=== PATIENT | male | born 2000 | race Caucasian/White ===

== ENCOUNTER 2020-04-30 16:43 | Emergency (ER) | payer OTHER, SELFPAY ==
[2020-04-30 16:50] VITALS: BP 142/71; PULSE 88; RESP 19; TEMP 36.6; O2SAT 100; BMI 25.0
[2020-04-30 17:11] LABS: UTC Strep Screen (Rapid) Positive (Negative)
--- NOTE | 2020-04-30 17:23 | HMH.EDUTC ---
[facility] [place] Disposition Clinical Impression: Strep throat Disposition: Home, Self-Care Condition on Discharge: Good Instructions: DI for Strep Throat, Strep Throat (Alternative Therapy), Penicillin V Potassium Additional Instructions: *Monitor Temp, Over the counter Motrin or Tylenol as directed/as needed Tylenol every 4 hours and Motrin every 6 hours (as long as your family doctor has told you that you can take it) for fever or pain. and straight to ER if unable to lower temp less than 101.0 after medication given *Warm salt water gargles may help to soothe the throat *Throat Lozenges *Warm fluids like tea with honey may help to soothe the throat *Sleep elevated *Humidifier/Vaporizer Strep throat *If you did not take Penicillin shot or was unable to, start taking antibiotic immediately and make sure that you take it for the FULL length of time although you should start to feel better in 24-48 hours *change toothbrush and toothpaste 24-48 hours after starting to take antibiotics so you do not reinfect yourself Monitor Temp. Tylenol and/or Ibuprofen as needed. ER if fever is no less than 101 despite alternating Tylenol and Ibuprofen * Encourage fluids, water, Gatorade, powerade, pedialyte if infant/toddler/or child *Cold fluids, popsicles and ice cream may feel good on his throat Follow up IMMEDIATELY for new or worsening symptoms or no Noticeable improvement over the next 48-72 hours. 911 for difficulty breathing or swallowing Prescriptions: Penicillin V Potassium 500 mg PO BID 10 Days #20 tab Transmission Status: Pending to [id number] Referrals: PCP,No [Primary Care Provider] - As needed Time of Disposition: 17:27 Medical Decision Making - Tee Inquiry Pt receiving controlled substance: No Tee was queried for this patient: No Vital Signs: 04/30/20 16:50 Temperature 97.9 F Temperature Source Oral Pulse Rate [Right Brachial] 88 Respiratory Rate 19 Blood Pressure [Right Arm] 142/71 H Blood Pressure Mean [Right Arm] 94 Blood Pressure Source [Right Arm] Automatic Cuff Blood Pressure Position [Right Arm] Sitting 02 Sat by Pulse Oximetry 100 Oxygen Delivery Method Room Air - Lab Data Lab results reviewed: Yes: I reviewed the patient's lab results. Lab Results 04/30/20 17:03: Strep Scn Rapid Clinic Positive A [facility] [place] HPI - General Stated complaint: sore throat, Time Seen by Provider: 04/30/20 17:23 Mode of Arrival: Ambulatory Source of Information: Patient Limitations: No Limitations Description of Symptoms (Recalled from Triage Doc. by RN): PATIENT C/O SORE THROAT SINCE THIS MORNING HEENT Symptoms (Recalled from RN notes): Yes Resp Symptoms (Recalled from RN notes): No Skin Symptoms (Recalled from RN notes): No MS Symptoms (Recalled from RN notes): No Functional Status (Recalled from RN notes): WNL - History of Present Illness Provider Complaint: Patient states that this morning he started having sore throat and hurts when he swallows and has continued throughout the day so he came in to get checked - Related Data Previous Rx's Medication Instructions Recorded Penicillin V Potassium 500 mg PO BID 10 Days #20 tab 04/30/20 Allergies Allergy/AdvReac Type Severity Reaction Status Date / Time No Known Allergies Allergy Verified 04/30/20 17:10 - Worker's Comp Is this a Worker's Comp case?: No [facility] History - Hepatitis A Screen Drug use history?: No High risk sexual behaviors?: No History of sexually transmitted infection?: No Currently employed?: No Childcare worker?: No Do you have indoor plumbing?: Yes Do you have electricity?: Yes Attestation statement:: This patient has been screened for Hepatitis A risk factors. - Social History Alcohol Intake: never Occupational Status: other ROS Obtained: Yes All systems reviewed & no additional complaints, Yes Systems reviewed as appropriate & no additional complaints - Constitutional Constitutional: Reports syst
[2020-04-30 17:26] VITALS: BP 142/71; PULSE 88; RESP 19; TEMP 36.6; O2SAT 100
== END 2020-04-30 17:28 | disposition home or self-care (01) ==
PROVIDERS: Emergency Provider Nurse Practitioner
DX: J02.0 Streptococcal pharyngitis (principal)
CPT/HCPCS: 87880; 99202; G0463

== ENCOUNTER 2021-03-06 21:01 | Emergency (ER) | payer OTHER, SELFPAY ==
[2021-03-06 21:02] VITALS: BP 141/99; PULSE 126; RESP 20; TEMP 37; O2SAT 99; BMI 21.9
--- NOTE | 2021-03-06 21:22 | CT_ITS ---
PROCEDURE INFORMATION: Exam: CT Maxillofacial With Contrast Exam date and time: 03/06/2021 9:22 PM Age: 20 years old Clinical indication: Jaw pain; Patient HX: Jaw & dental pain/swelling TECHNIQUE: Imaging protocol: Computed tomography images of the face with intravenous contrast. Total images: 845 Radiation optimization: All CT scans at this facility use at least one of these dose optimization techniques: automated exposure control; mA and/or kV adjustment per patient size (includes targeted exams where dose is matched to clinical indication); or iterative reconstruction. Contrast material: ISOVUE; Contrast volume: 75 ml; Contrast route: IV; COMPARISON: No relevant prior studies available. FINDINGS: Orbital cavity: Orbital contents are normal. Bones/joints: No fractures. TMJs are well aligned. Paranasal sinuses: Mucosal thickening in the right maxillary sinus suggesting mild chronic sinus inflammatory disease. No fluid levels. The other paranasal sinuses are clear. Mastoid air cells: The mastoid air cells are clear. Soft tissues: Right-sided facial soft tissue swelling over the rightward maxilla and mandibular body suggesting cellulitis. There is moderate dental caries involving the right 2nd maxillary premolar tooth with periodontal bone resorption around the lateral root penetrating the superficial maxillary cortical margin. Questionable 9 x 5 mm peripherally enhancing subperiosteal fluid collection in this region suspicious for a small subperiosteal abscess. Bilateral impacted maxillary molars and impacted left mandibular molar. No foreign body. Submandibular/Parotid glands: The parotid and submandibular glands are unremarkable. Lymph nodes: No adenopathy. Brain: Visualized intracranial contents are unremarkable. The infratemporal fossae and bridge worker spaces are unremarkable. Nasopharynx: The nasopharynx is unremarkable. Oropharynx: The parapharyngeal spaces are unremarkable. The oropharynx is unremarkable. Larynx: Normal epiglottis. Thyroid: The visualized thyroid gland is unremarkable. Other findings: No hematoma. The hypopharynx is unremarkable. Visualized larynx is unremarkable. The visualized proximal tracheal airway is unremarkable. IMPRESSION: 1. Cellulitis in the right mid to lower face with a suspected small subperiosteal abscess along the right lateral maxilla associated with the right 2nd maxillary premolar tooth, which demonstrates evidence of dental caries and periodontal disease. 2. Bilateral impacted wisdom teeth.
[2021-03-06 21:45] LABS: Chloride 102 mmol/L (98-107)
[2021-03-06 21:46] LABS: Potassium 3.5 mmoL/L (3.5-5.1); Sodium 141 mmol/L (136-145)
[2021-03-06 21:48] LABS: Alanine Aminotransferase 25 U/L (12-78); Alkaline Phosphatase 152 U/L (38-126); Aspartate Amino Transferase 26 U/L (17-59); Bilirubin,Total 0.5 mg/dl (0.2-1.3); Blood Urea Nitrogen 11 mg/dl (9-20); Creatinine Clearance Estimated 142 mL/min (50-200); Estimated Glomerular Filt Rate 107 ml/min (>60); GFR (African American) 129 ML/MIN (>60)
[2021-03-06 21:49] LABS: Albumin Level 5.4 g/dl (3.5-5.0); Albumin/Globulin Ratio 1.8 (1.1-1.8); Anion Gap 15.5 mEq/L (5-15); Calcium 10.1 mg/dl (8.4-10.2); Carbon Dioxide 27 mmol/L (22.0-30.0); Glucose 101 mg/dl (74-100); Lactic Acid 1.4 mmol/L (0.7-2.1); Total Protein,Serum 8.4 g/dl (6.3-8.2)
[2021-03-06 21:50] LABS: Basophils # 0.1 K/mm3 (0-0.2); Basophils % 1.4 % (0.1-2.0); Eosinophils # 0.1 K/mm3 (0.0-0.4); Hematocrit 54.4 % (42.0-52.0); Hemoglobin 17.1 g/dL (14.1-18.0); Lymphocytes # 3.1 K/mm3 (0.7-4.5); Lymphocytes % 29.4 % (10-50); Mean Corpuscular HGB Conc 31.4 g/dL (31.8-35.4); Mean Corpuscular Hemoglobin 26.9 pg (27.0-31.2); Mean Corpuscular Volume 85.8 fl (80-94); Mean Platelet Volume 9.3 fl (7.4-10.4); Monocytes # 0.7 K/mm3 (0.1-1.0); Monocytes % 6.4 % (1.7-9.3); Neutrophils # 6.5 K/mm3 (1.8-7.8); Neutrophils % 61.7 % (37.0-80.0); Platelet Count 308 K/mm3 (142-424); Red Blood Count 6.34 M/mm3 (4.60-6.20); Red Cell Distribution Width 13.6 % (11.5-17.5); White Blood Count 10.5 K/mm3 (4.8-10.8)
[2021-03-06 21:58] LABS: Amylase 64 U/L (30-110)
[2021-03-06 22:03] LABS: C-Reactive Protein 10.7 mg/L (0-4)
[2021-03-06 22:26] LABS: Erythrocyte Sedimentation Rate 1 mm/hr (0-15)
--- NOTE | 2021-03-06 23:00 | HMH.EDDENT ---
ED Disposition Clinical Impression: Dental abscess, Dental caries Disposition: Home, Self-Care Condition on Discharge: Good Instructions: DI for Dental Pain Additional Instructions: use meds and see dentist for follow up Prescriptions: cephALEXin [cephALEXin 500mg capsule*] 500 mg PO TID #30 cap Transmission Status: Pending to [id number] clindamycin HCL [Cleocin HCl] 300 mg PO TID #30 cap Transmission Status: Pending to [id number] Referrals: Provider,Referral, [Primary Care Provider] - - Critical Care Critical Care Time: No Attestation: On 03/06/21, the high probability of a clinically significant, sudden or life threatening deterioration of the following system(s) required my full and direct attention, intervention and personal management. The time I documented below is in addition to time spent performing reported procedures but includes the following listed in this critical care notation. Medical Decision Making - Medical Records Medical records reviewed: Yes: I reviewed the patient's medical records. - Tee Inquiry Pt receiving controlled substance: No Vital Signs: 03/06/21 21:02 Temperature 98.6 F Temperature Source Oral Pulse Rate [Apical] 126 H Respiratory Rate 20 Blood Pressure [Right Arm] 141/99 H Blood Pressure Mean [Right Arm] 113 Blood Pressure Source [Right Arm] Automatic Cuff Blood Pressure Position [Right Arm] Sitting 02 Sat by Pulse Oximetry 99 Oxygen Delivery Method Room Air - Lab Data Lab results reviewed: Yes: I reviewed the patient's lab results. Lab Results 03/06/21 17:29: C-Reactive Protein 10.7 H, Amylase 64 03/06/21 17:29: WBC 10.5, RBC 6.34 H, Hgb 17.1, Hct 54.4 H, MCV 85.8, MCH 26.9 L, MCHC 31.4 L, RDW 13.6, Plt Count 308, MPV 9.3, Neut % (Auto) 61.7, Lymph % (Auto) 29.4, Grimes % (Auto) 6.4, Eos % (Auto) 1.0, Baso % (Auto) 1.4, Neut # (Auto) 6.5, Lymph # (Auto) 3.1, [place]imes # (Auto) 0.7, Eos # (Auto) 0.1, Baso # (Auto) 0.1, ESR 1 03/06/21 17:29: Sodium 141, Potassium 3.5, Chloride 102, Carbon Dioxide 27, Anion Gap 15.5 H, BUN 11, Creatinine 0.90, Estimated Creat Clear 142, Estimated GFR 107, Est GFR ( Amer) 129, Glucose 101 H, Calcium 10.1, Total Bilirubin 0.5, AST 26, ALT 25, Alkaline Phosphatase 152 H, Total Protein 8.4 H, Albumin 5.4 H, Globulin 3.0, Albumin/Globulin Ratio 1.8 03/06/21 17:29: Lactate 1.4 Result diagrams: 03/06/21 17:29 03/06/21 17:29 Orders (Tests/Meds): ED MEDICATIONS Generic Name Dose Route Start Last Admin Trade Name Freq PRN Reason Stop Dose Admin Sodium Chloride 1,000 mls @ 999 mls/hr 03/06/21 21:30 03/06/21 21:38 Sod Chlor 0.9% 1000ml Bag IV 03/06/21 22:30 999 mls/hr .Q1H1M [place] Administration Discontinued Medications Generic Name Dose Route Start Last Admin Trade Name Freq PRN Reason Stop Dose Admin Benzocaine/Butamben/Tetracaine HCl 1 gm 03/06/21 22:56 Tetracaine/Benzocaine/Butamben 56 Gm [place] TP 03/06/21 22:57 ONCE ONE Iopamidol 75 ml 03/06/21 21:37 03/06/21 21:46 Iopamidol-370 (76%);100ml Bottle IV 03/06/21 21:38 75 ml ONCE ONE Administration Ketorolac Tromethamine 30 mg 03/06/21 21:20 03/06/21 21:38 Ketorolac 30mg/Ml Vial IV 03/06/21 21:21 30 mg ONCE ONE Administration Lidocaine HCl 15 ml 03/06/21 22:56 Lidocaine 2% Viscous Karo 15ml Udc PO 03/06/21 22:57 ONCE ONE Sodium Chloride 10 ml 03/06/21 21:37 03/06/21 21:46 Sodium Chloride 0.9% 10ml Syr (Rad Only) IV 03/06/21 21:38 10 ml ONCE ONE Administration ORDERS Category Date Time Status Blood Culture Stat Micro 03/06/21 17:29 Received - CT Data CT Scan: Other (facial) Time Received: 23:[address] Reviewed: Yes: I have viewed the radiologist's interpretation Preliminary Findings: Abnormal (see report ) Medical Decision Narrative: will start abx and refer to dentist for eval Dental HPI - General Chief complaint: Dental/Oral Stated complaint: DENTA
[2021-03-06 23:17] VITALS: BP 140/90; PULSE 100; RESP 18; TEMP 36.8; O2SAT 99
== END 2021-03-06 23:24 | disposition home or self-care (01) ==
PROVIDERS: Emergency Provider Emergency Medicine
DX: K04.7 Periapical abscess without sinus (principal); K02.9 Dental caries, unspecified
CPT/HCPCS: 70487; 80053; 82150; 83605; 85025; 85651; 86140; 87040; 96365; 96366; 96375; 99282; J0696; Q9967

== ENCOUNTER 2021-03-11 15:32 | Emergency (ER) | payer OTHER, SELFPAY ==
--- NOTE | 2021-03-11 15:39 | XR_ITS ---
PROCEDURE INFORMATION: Exam: XR Right Hand Exam date and time: 03/11/2021 3:39 PM Age: 20 years old Clinical indication: Injury or trauma; Other: Dog bite; Hand; Right; Injury date: 03/11/21 TECHNIQUE: Imaging protocol: XR Right hand. Views: 3 or more views. COMPARISON: No relevant prior studies available. FINDINGS: Bones/joints: No acute fracture or dislocation. Joint spaces are preserved. Normal bone mineralization. Normal carpal bone alignment. Radiocarpal joint is preserved. Soft tissues: Soft tissue swelling and foci of soft tissue air seen between the 1st and 2nd metacarpals as 2nd and 3rd metacarpals. No radiopaque foreign body. IMPRESSION: Soft tissue swelling and soft tissue air in the lateral aspect of the hand.
[2021-03-11 17:14] VITALS: BP 140/65; PULSE 132; RESP 14; TEMP 37; O2SAT 99; BMI 22.1
--- NOTE | 2021-03-11 17:25 | HMH.EDUTC ---
[facility] [place] Disposition Clinical Impression: Superficial abrasion Dog bite of right hand Qualifiers: Encounter type: initial encounter Qualified Code(s): S61.451A - Open bite of right hand, initial encounter Laceration of right hand Qualifiers: Encounter type: initial encounter Foreign body presence: without foreign body Qualified Code(s): S61.411A - Laceration without foreign body of right hand, initial encounter Disposition: Home, Self-Care Condition on Discharge: Good Instructions: How to Care for a Laceration After Repair, DI for Laceration Repair, DI for Laceration Repair -- Simple Additional Instructions: Keep the wound clean and dry. Keep a dressing on it if you are going to be getting it dirty. Watch the for signs of infection, such as redness, swelling, drainage, fever. etc. The 2 antibiotics that you are on will not cover all the bacteria that are known to live in a dog's mouth. We need to stop both of these and start Augmentin. I sent in a prescription for it to your pharmacy. Augment should cover any infection you would have had associated with your mouth. Eat yogurt at least twice daily for the next few weeks or take a probiotic as directed on the bottle. 3 different antibiotics this close together will be hard on your GI tract, but dog bites always require Augmentin antibiotics to prevent infection, especially since we had to sew your wound up and potentially close bacteria up in the wound. Take tylenol or ibuprofen for pain. Follow up with your regular doctor for any issues. Your hand seems fine from a neurovascular standpoint at this time. 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 You could call them at to make an appointment. Return in 10 days to have the sutures removed. GO TO THE ER FOR ANY WORSENING SYMPTOMS OR CONCERNS. Prescriptions: Amoxicillin/Potassium Clav [Augmentin 875-125 Tablet] 1 tab PO Q12H 10 Days #20 tab Transmission Status: Received by [id number] Referrals: Provider,Referral, MD [Primary Care Provider] - Time of Disposition: 19:04 Medical Decision Making - Medical Records Medical records reviewed: No: I reviewed the patient's medical records. - Tee Inquiry Pt receiving controlled substance: No Vital Signs: 03/11/21 17:14 03/11/21 19:28 Temperature 98.6 F 98.6 F Temperature Source Oral Pulse Rate 132 H Pulse Rate [Left] 132 H Respiratory Rate 14 14 Blood Pressure 140/65 Blood Pressure [Right Arm] 140/65 Blood Pressure Mean [Right Arm] 90 02 Sat by Pulse Oximetry 99 Orders (Tests/Meds): ED MEDICATIONS Discontinued Medications Generic Name Dose Route Start Last Admin Trade Name Freq PRN Reason Stop Dose Admin Lidocaine HCl 4 ml 03/11/21 18:45 03/11/21 19:27 Lidocaine 1% Pf 2ml Ampule SQ 03/11/21 18:46 4 ml ONCE ONE Administration - Radiology Data #1 Image(s): Hand Image Reviewed: Yes I reviewed the patient's radiology image, Yes I have reviewed radiologist's interpretation Preliminary Findings: No Fracture Seen (no foreign body or dog teeth noted. ) PROCEDURE INFORMATION: Exam: XR Right Hand Exam date and time: 03/11/2021 3:39 PM Age: 20 years old Clinical indication: Injury or trauma; Other: Dog bite; Hand; Right; Injury date: 03/11/21 TECHNIQUE: Imaging protocol: XR Right hand. Views: 3 or more views. COMPARISON: No relevant prior studies available. FINDINGS: Bones/joints: No acute fracture or dislocation. Joint spaces are preserved. Normal bone mineralization. Normal carpal bone alignment. Radiocarpal joint is preserved. Soft tissues: Soft tissue swelling and foci of soft tissue air seen between the 1st and 2nd metacarpals as 2nd and 3rd metacarpals. No radiopaq
[2021-03-11 19:28] VITALS: BP 140/65; PULSE 132; RESP 14; TEMP 37
--- NOTE | 2021-03-11 19:29 | PC.NURSE ---
7 SUTURES PLACED TO THE PALM OF THE R HAND
== END 2021-03-11 19:33 | disposition home or self-care (01) ==
PROVIDERS: Emergency Provider Nurse Practitioner Family
DX: S61.451A Open bite of right hand, initial encounter (principal); Z23 Encounter for immunization; S60.571A Other superficial bite of hand of right hand, initial encounter; W54.0XXA Bitten by dog, initial encounter; Y92.019 Unspecified place in single-family (private) house as the place of occurrence of the external cause
CPT/HCPCS: 12001; 73130; 96372; G0008

== ENCOUNTER 2021-03-21 19:50 | Emergency (ER) | payer OTHER, SELFPAY ==
[2021-03-21 19:50] VITALS: BP 148/74; PULSE 96; RESP 18; TEMP 37.1; O2SAT 97; BMI 22.4
--- NOTE | 2021-03-21 20:54 | HMH.EDUTC ---
[facility] [place] Clinical Impression: Dog bite of right hand Qualifiers: Encounter type: initial encounter Qualified Code(s): S61.451A - Open bite of right hand, initial encounter Laceration of right hand Qualifiers: Encounter type: subsequent encounter Foreign body presence: without foreign body Qualified Code(s): S61.411D - Laceration without foreign body of right hand, subsequent encounter Disposition: Home, Self-Care Condition on Discharge: Good Instructions: DI for Laceration Repair-Skin Closure Strips Additional Instructions: Keep the wound clean and dry. Keep a dressing on it if yiou are going to be getting it dirty. Watch the for signs of infection, such as redness, swelling, drainage, fever. etc. Follow up with your regular doctor. Finish the antibiotics that you are on. GO TO THE ER FOR ANY WORSENING SYMPTOMS OR CONCERNS. Prescriptions: Mupirocin [Bactroban 2% Ointment 22gm tube] 1 applicatio TP TID 7 Days #1 gm Transmission Status: Received by [id number] Referrals: Provider,Referral, [Primary Care Provider] - Time of Disposition: 21:05 Medical Decision Making - Medical Records Medical records reviewed: No: I reviewed the patient's medical records. - Tee Inquiry Pt receiving controlled substance: No Vital Signs: 03/21/21 19:50 03/21/21 21:01 Temperature 98.7 F 98.7 F Temperature Source Oral Pulse Rate 96 H Pulse Rate [Right Brachial] 96 H Respiratory Rate 18 18 Blood Pressure 148/74 H Blood Pressure [Right Arm] 148/74 H Blood Pressure Mean [Right Arm] 98 Blood Pressure Source [Right Arm] Automatic Cuff Blood Pressure Position [Right Arm] Sitting 02 Sat by Pulse Oximetry 97 Oxygen Delivery Method Room Air Orders (Tests/Meds): ORDERS Category Date Time Status Wound Culture and Gram Stain Stat Micro 03/20/21 20:55 Received [facility] [place] - General Stated complaint: AO 03/11 FU lac to stitches Time Seen by Provider: 03/21/21 20:00 Mode of Arrival: Ambulatory Source of Information: Patient Limitations: No Limitations Description of Symptoms (Recalled from Triage Doc. by RN): PATIENT STATES HE HAD LACERATION TO RIGHT PALM THAT WAS SUTURED ON 03/11. HE STATES THAT HE TOOK THE STITCHES OUT TODAY, BUT IS CONCERNED THAT LACERATION IS OPENING BACK UP HEENT Symptoms (Recalled from RN notes): No Resp Symptoms (Recalled from RN notes): No Skin Symptoms (Recalled from RN notes): Yes MS Symptoms (Recalled from RN notes): No Functional Status (Recalled from RN notes): WNL - History of Present Illness Provider Complaint: He had a dog bite to his right hand on 03/11. He recieved a deep puncture tear to the palm of his right hand that was sutured closed. He has take augmentin 875 mg bid since then also. He states that today some of the stitches had seemed to come loose, so he picked at it and removed the rest of the stitches. After this, the wound started to gap open some. He denies any discharge or redness at the site. He denies any other signs of infection. - Related Data Previous Rx's Medication Instructions Recorded Mupirocin [Bactroban 2% Ointment 1 applicatio TP TID 7 Days #1 gm 03/21/21 22gm tube] Allergies Allergy/AdvReac Type Severity Reaction Status Date / Time No Known Allergies Allergy Verified 04/30/20 17:10 - Worker's Comp Is this a Worker's Comp case?: No [facility] History - Hepatitis A Screen Drug use history?: No High risk sexual behaviors?: No History of sexually transmitted infection?: No Currently employed?: No Childcare worker?: No Do you have indoor plumbing?: Yes Do you have electricity?: Yes Attestation statement:: This patient has been screened for Hepatitis A risk factors. I have reviewed the patient's past medical history: Yes - Social History Alcohol Intake: never Occupational Status: other ROS Obtained: Yes All systems reviewed & no additional complaints - Constitutional Constituti
[2021-03-21 21:01] VITALS: BP 148/74; PULSE 96; RESP 18; TEMP 37.1; O2SAT 97
== END 2021-03-21 21:08 | disposition home or self-care (01) ==
PROVIDERS: Emergency Provider Nurse Practitioner Family
DX: S61.451D Open bite of right hand, subsequent encounter (principal); W54.0XXD Bitten by dog, subsequent encounter
CPT/HCPCS: 87070; 87077; 87186; 87205; 99202; G0463